=== PATIENT | female | born 1965 | race Caucasian/White ===

== ENCOUNTER 2017-10-03 04:33 | Emergency (ER) | payer BC ==
--- NOTE | 2017-10-03 04:36 | PDOC ---
History of Present Illness - General Chief Complaint: Respiratory Stated Complaint: COUGH, SORE THROAT X 3 DAYS Time Seen by Provider: 10/03/17 04:35 - History of Present Illness Initial Comments: This otherwise healthy 51-year-old woman presents with several day history of sore throat and laryngitis. Illness began as "tickle" in her throat, progressing to pain with swallowing then hoarse voice and nonproductive cough in the last 2 days. No measured fever or chills. No stridor/wheezing or shortness of breath. No gastrointestinal symptoms. 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 Patient is taking acetaminophen for her pain since she has been told in the past not to take nonsteroidal anti-inflammatory medications after cholecystectomy. No history of peptic ulcer disease or gastritis. Patient has been using a humidifier at home since start at the current illness ALLERGIES: Gabapentin, Vicodin Past History - Past Medical History Allergies/Adverse Reactions: Allergies Allergy/AdvReac Type Severity Reaction Status Date / Time acetaminophen [From Vicodin] Allergy Verified 10/03/17 04:35 gabapentin Allergy Verified 10/03/17 04:35 hydrocodone [From Vicodin] Allergy Verified 10/03/17 04:35 Home Medications: Ambulatory Orders NK [No Known Home Medication] 10/03/17 Review of Systems - Review of Systems Able to Perform ROS?: Yes Comments:: 12 point review of systems is negative except for what is noted in the history of present illness *Physical Exam - Physical Exam Comments: GENERAL: Adult female, speaking in a whisper but in no acute respiratory distress HEAD: Normal with no signs of trauma. EYES: PERRLA, EOMI, sclera anicteric, conjunctiva clear. ENT: Ears normal, nares patent, oropharynx moderately erythematous without exudate or edema. Moist mucous membranes. NECK: Normal range of motion, supple without lymphadenopathy, JVD, or masses. No stridor LUNGS: Breath sounds equal, clear to auscultation bilaterally. No wheezes, and no crackles. HEART:Regular rate and rhythm, normal S1 and S2 without murmur, rub or gallop. ABDOMEN:.normal bowel sounds No guarding,tenderness or rebound.No masses No distention. EXTREMITIES: Normal range of motion, no edema. No clubbing or cyanosis. No erythema, or tenderness. NEUROLOGICAL: Cranial nerves II through XII grossly intact. Normal speech. No focal neurological deficits. MUSCULOSKELETAL: Back non-tender to palpation, no CVA tenderness SKIN: Warm, Dry, normal turgor, no rashes or lesions noted. Progress Note - Progress Note Progress Note: This 51-year-old woman presents with several day history of acute laryngitis/ pharyngitis. On presentation, she is afebrile without evidence of acute respiratory distress. She has mild erythema but no edema/exudates of her pharynx. There is no stridor or wheezing on exam with good airflow present. 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 Patient will be contacted if either is positive for strep and antibiotic prescription will be sent to her pharmacy. The patient's diastolic blood pressure is elevated (104 mmHg); she has no known history of hypertension. Patient has been advised follow-up with her general doctor within the next few weeks *DC/Admit/Observation/Transfer Diagnosis at time of Disposition: Laryngopharyngitis - Discharge Dispostion Disposition: HOME Condition at time of disposition: Stable - Referrals Referrals: Fidel Dodd MD [Primary Care Provider] - - Patient Instructions Printed Discharge Instructions: DI for Laryngitis Additional Instructions: Continue using humidifier Drink plenty of water Avoid using her voice over the next several days Alternate Motrin/Aleve with Tylenol for pain/fever We will call you if strep test is positive and send antibiotic prescription to your pharmacy - Post Discharge Activity
[2017-10-03 04:40] VITALS: BP 148/104; PULSE 94; TEMP 98.3; BMI 34.3
== END 2017-10-03 05:09 | disposition home or self-care (01) ==
LOC: FER 04:33
DX: J06.0 Acute laryngopharyngitis (principal)
CPT/HCPCS: 87070; 87077; 87430; 99281-25

== ENCOUNTER 2019-07-04 12:45 | Emergency (ER) | payer BC, OTHER ==
--- NOTE | 2019-07-04 13:02 | PDOC ---
History of Present Illness - General Chief Complaint: Pain Stated Complaint: neck and upper back pain s/p injury at [employer] today Time Seen by Provider: 07/04/19 12:54 - History of Present Illness Initial Comments: 07/04/19 21:57 53F W/O PMH P/W left shoulder/tricep/scapular/neck pain that occurred after patient was pulling a heavy coin bag at work. Patient felt twang and soon after the described pain ensued. Patient denies falls and trauma. Denies numbness, tingling, weakness, focal deficits. Patient took two aleeve before presentation, has helped reduce the pain. Allergies reviewed with patient. Denies EtOH, tobacco, drugs Past History - Past Medical History Allergies/Adverse Reactions: Allergies Allergy/AdvReac Type Severity Reaction Status Date / Time gabapentin Allergy Verified 07/04/19 13:11 hydrocodone [From Vicodin] Allergy Verified 07/04/19 13:11 Home Medications: Ambulatory Orders Cyclobenzaprine HCl [Flexeril 10 mg] 10 mg PO TID PRN #15 tablet 07/04/19 Ibuprofen 800 mg PO TID PRN #15 tablet 07/04/19 COPD: No - Psycho Social/Smoking Cessation Hx Smoking History: Never smoked Have you smoked in the past 12 months: No Hx Alcohol Use: No Drug/Substance Use Hx: No Substance Use Type: None Review of Systems - Review of Systems Comments:: 07/04/19 21:57 CONSTITUTIONAL: Denies F / C HEENT: Denies headache, lightheadedness, dizziness, changes in vision / hearing , diplopia, blurry vision RESP: Denies SOB CARD: Denies chest pain GI: Denies N / V / D, abdominal pain : Denies incontinence SKIN: Denies rashes NEURO: Denies numbness, tingling, weakness MSK: Endorses left shoulder, neck, and arm pain *Physical Exam - Vital Signs 07/04/19 21:58 Vital Signs Temp Pulse Resp BP Pulse Ox 98.4 F 72 18 130/94 98 07/04/19 12:46 07/04/19 12:46 07/04/19 12:46 07/04/19 12:46 07/04/19 12:46 - Physical Exam 07/04/19 21:58 GEN: Well appearing, NAD, comfortable. AAOx3 HEENT: NC/AT, CN II-XII intact, EOMI, PERRLA. No facial asymmetry. Moist mucous membranes. Normal voice. Supple neck w/ FROM, no TTP midline. CV: S1/S2, RRR, no m/r/g LUNG: CTAB, no wheezes, crackles, rales, rhonchi. GI: soft, ndnt, +BS, no guarding, no rebound. No masses. EXTREMITIES: No LE edema. No obvious deformities of all extremities. FROM UE b/ l. 2+ pulses b/l. SKIN: warm, dry, normal turgor PSYCH: normal mood and affect NEURO: Moving all extremities well. 5/5 strength and symmetric sensation of UEs b/l. Medical Decision Making - Medical Decision Making 07/04/19 14:09 53F c/o left neck, shoulder, scapular, tricep pain that occurred after she was pulling a heavy coin bag at work. FROM U/E B/L. + TTP left scapula and paraspinal region. Neurovascularally intact. Likely MSK strain - Flexeril - DC home w/ ortho f/u as needed, sent flexeril and ibuprofen RX Discharge - Discharge Information Problems reviewed: Yes Clinical Impression/Diagnosis: Cervical strain Qualifiers: Encounter type: initial encounter Qualified Code(s): S16.1XXA - Strain of muscle, fascia and tendon at neck level, initial encounter Condition: Stable Disposition: HOME - Admission No - Additional Discharge Information Prescriptions: Cyclobenzaprine HCl [Flexeril 10 mg] 10 mg PO TID PRN #15 tablet PRN Reason: Pain Ibuprofen 800 mg PO TID PRN #15 tablet PRN Reason: Pain - Follow up/Referral Referrals: Scott Jay DO [Staff Physician] - Adan Negron DO [Staff Physician] - - Patient Discharge Instructions Patient Printed Discharge Instructions: DI for Cervical Muscle Strain Additional Instructions: We sent two medications to your pharmacy, please pick them up and take as prescribed. One is a muscle relaxant; take it as needed but this medication can make you drowsy so DO NOT operative heavy machinery or drive when you take it. The second is a strong form of ibuprofen, take as needed. Wear the cervical collar to promote healing. Ice the affected area on and off for 20 minutes to help with the pain. Take it easy and do not do anything strenuous for the next 3 days. Follow up with your primary care doctor in the next 7-14 days. We are referring you to Orthopedic Surgery. If you pain does not improve in the next 3 days you can call and schedule an appointment at the numbers provided below. Immediately return to the nearest Emergency Department if you experience worsening pain, numbness, tingling, weakness, or anything that concerns you. - Post Discharge Activity Work/Back to School Note: Back to Work
--- NOTE | 2019-07-04 13:17 | PDOC ---
Attending Attestation - Resident Resident Name: Dane Lerma - ED Attending Attestation I have performed the following: I have examined & evaluated the patient, The case was reviewed & discussed with the resident, I agree w/resident's findings & plan, Exceptions are as noted - HPI HPI: 07/04/19 13:59 Patient developed pain and stiffness of the right posterior neck, trapezius, and shoulder after dragging and attempting to lift a heavy bag today. She has a history of cervical fusion and dislocated shoulder 5 years ago secondary to trauma. She has been fully active without significant recurrent symptoms since then. Denies pain with movement of the neck, limited range of motion, or radicular symptoms in the arm. However, stiffness limits her ability to abduct the left upper extremity. - Physicial Exam PE: 07/04/19 14:01 Physical exam: Normal vital signs Head atraumatic. PERRLA, fundi benign, ENT clear Neck without point tenderness or deformity. Full range of motion without significant pain. No signs of inflammation visible or palpable Mild spasm of the left trapezius with mild tenderness over the body of the muscle. Mild pain with abduction of the shoulder, but range of motion appears adequate. No distal sensory or motor deficits. Pulses intact. - Medical Decision Making 07/04/19 14:03 Assessment: Cervical strain, upper back strain, shoulder strain, superimposed on chronic disease from prior injury. Stable. Plan: Soft cervical collar, analgesics and muscle relaxant, rest, and follow-up orthopedics if no improvement. Fully ambulatory and in no significant pain or other distress at discharge.
[2019-07-04 13:21] VITALS: BP 130/94; PULSE 72; TEMP 98.4; BMI 30.1
[2019-07-04] MEDS ORDERED: CYCLOBENZAPRINE HCL 10 MG TABLET (FP) PO ONE (13:38)
[2019-07-04] MEDS ORDERED: CYCLOBENZAPRINE HCL 10 MG TABLET (FP) ONE (13:47)
== END 2019-07-04 14:14 | disposition home or self-care (01) ==
LOC: FER 12:45
CPT/HCPCS: 99282-25

== ENCOUNTER 2021-12-29 14:45 | Emergency (ER) | payer OTHER ==
[2021-12-29 15:23] VITALS: BP 131/91; PULSE 104; TEMP 98.8; BMI 30.9
[2021-12-29] MEDS ORDERED: IBUPROFEN 600 MG TABLET (FP) PO ONE ×2 (15:51→15:54)
== END 2021-12-29 17:04 | disposition home or self-care (01) ==
LOC: FER 14:45
DX: S39.011A Strain of muscle, fascia and tendon of abdomen, initial encounter (principal); X50.0XXA Overexertion from strenuous movement or load, initial encounter
CPT/HCPCS: 74177-TC; 99285-25; Q9967